=== PATIENT | male | born 1995 | race Caucasian/White ===

== ENCOUNTER 2016-11-18 00:16 | Emergency (ER) | payer MEDICAID ==
--- NOTE | ~2016-11-18 | CR142 ---
[facility] A Service of [facility] & [facility] RADIOLOGY TEXT RESULTS PATIENT: ELIZABETH DEAN LOCATION: [facility] : [birth year] UNIT #: [id number] AGE: [address]: ELDON RENEE APRN SEX: M ORDER DR: [id number] [facility] [address]. [place], [place] [address] [id number] E MR#: [id number] Acc #: [id number] NAME: ELIZABETH DEAN : 1995 SEX: M STUDY DATE/TIME: 11/18/2016 3:23 UNIT: [facility] ROOM: STUDY DESCRIPTION: CR Hand Min 3 Views Rt Attending Physician: Eldon Renee Aprn Ordering Physician: Eldon Renee Aprn Primary Care Physician: Primary Care Physician No MEDICAL IMAGING REPORT This report is preliminary unless electronic signature is present EXAM Right hand INDICTIONS Right hand pain after punching something tonight. FINDINGS Three views of the right hand were obtained and compared with 12/14/16. No fracture is visible. The bones are normal. IMPRESSION Normal right hand. Dictated by... Mart Vidales M.D. THIS IS AN ELECTRONICALLY VERIFIED REPORT Mart Vidales M.D. at 11/18/2016 1:36 PM RANDY/aida TD: 11/18/2016 13:12 JOB #: [id number] MEDICAL IMAGING REPORT Page 1 of 1 COPY
[~2016-11-18 00:16] MED LIST: CONCERTA; IBUPROFEN400 MG PO; SEROQUEL
== END 2016-11-18 04:50 | disposition home or self-care (01) ==
LOC: CED 00:16
DX: S21.112A Laceration without foreign body of left front wall of thorax without penetration into thoracic cavity, initial encounter (principal); S41.012A Laceration without foreign body of left shoulder, initial encounter; S41.112A Laceration without foreign body of left upper arm, initial encounter; S60.221A Contusion of right hand, initial encounter; F17.210 Nicotine dependence, cigarettes, uncomplicated; Y08.89XA Assault by other specified means, initial encounter; Y92.410 Unspecified street and highway as the place of occurrence of the external cause
CPT/HCPCS: 29280; 73130; 99285